=== PATIENT | female | born 1965 | race American Indian/Alaskan Native ===

== ENCOUNTER 2021-07-25 21:20 | Emergency (ER) | payer SELFPAY ==
[2021-07-25] MEDS ORDERED: ASPIRIN 325 MG TAB PO ONE (22:18)
[2021-07-25 22:54] LABS: Basophils % (Auto) 0.6 % (0.0-1.8); Eosinophils # (Auto) 0.1 K/mm3 (0.0-0.4); Hematocrit 37.3 % (30.3-42.9); Lymphocytes # (Auto) 2.7 K/mm3 (1.2-5.4); Lymphocytes % (Auto) 46.6 % (13.4-35.0); Mean Corpuscular HGB Conc 35 % (30-34); Mean Corpuscular Volume 80 fl (79-97); Monocytes # (Auto) 0.5 K/mm3 (0.0-0.8); Monocytes % (Auto) 8.8 % (0.0-7.3); Platelet Count 355 K/mm3 (140-440); Red Blood Count 4.66 M/mm3 (3.65-5.03); Red Cell Distribution Width 15.8 % (13.2-15.2)
[2021-07-25] MEDS ORDERED: NITROGLYCERIN 0.4 MG TAB SUBL SL ONE (22:56)
--- NOTE | 2021-07-25 23:02 | Emergency Department Report ---
ED General Adult HPI - General Chief complaint: Chest Pain Stated complaint: CHEST PAIN & HYPERTENSION Time Seen by Provider: 07/25/21 22:40 Source: patient Mode of arrival: Ambulatory Limitations: No Limitations - History of Present Illness Initial comments: Patient is 56 years old female with history of hypertension, noncompliant with her medication. Patient presented to the ER complaining of substernal chest pain with no radiation. Patient stated that pain started this morning. Patient described her chest pain as tightness. She denied any shortness of breath, cough, fever or chills. Patient found to have a blood pressure of 187/107. Severity scale (0 -10): 3 - Related Data Allergies Allergy/AdvReac Type Severity Reaction Status Date / Time hydrocodone [From Vicodin] Allergy Itching Verified 07/25/21 22:06 latex Allergy Itching Verified 07/25/21 22:06 Latex, Natural Rubber Allergy Itching Verified 07/25/21 22:06 Penicillins Allergy Itching Verified 07/25/21 22:06 ED Review of Systems ROS: Stated complaint: CHEST PAIN & HYPERTENSION Other details as noted in HPI Comment: All other systems reviewed and negative Constitutional: denies: chills, fever Respiratory: denies: cough, shortness of breath, SOB with exertion, SOB at rest Cardiovascular: chest pain. denies: palpitations, dyspnea on exertion Gastrointestinal: denies: abdominal pain, nausea, vomiting Musculoskeletal: denies: back pain Neurological: denies: headache, weakness, numbness, paresthesias, confusion, abnormal gait ED Past Medical Hx - Past Medical History Previous Medical History?: No - Surgical History Past Surgical History?: Yes Additional Surgical History: Hy ED Physical Exam - General Limitations: No Limitations General appearance: alert, in no apparent distress - Head Head exam: Present: atraumatic, normocephalic, normal inspection - Eye Eye exam: Present: normal appearance - ENT ENT exam: Present: normal exam, normal orophraynx, mucous membranes moist - Neck Neck exam: Present: normal inspection, full ROM. Absent: tenderness, meningismus - Respiratory Respiratory exam: Present: normal lung sounds bilaterally. Absent: respiratory distress, wheezes, rales, rhonchi, accessory muscle use, decreased breath sounds, prolonged expiratory - Cardiovascular Cardiovascular Exam: Present: regular rate, normal rhythm, normal heart sounds - GI/Abdominal GI/Abdominal exam: Present: soft, normal bowel sounds. Absent: distended, tenderness, guarding, rebound, rigid, organomegaly, mass, bruit, pulsatile mass, hernia - Extremities Exam Extremities exam: Present: normal inspection, full ROM, normal capillary refill. Absent: tenderness - Back Exam Back exam: Present: normal inspection, full ROM. Absent: CVA tenderness (R), CVA tenderness (L) - Neurological Exam Neurological exam: Present: alert, oriented X3, CN II-XII intact, normal gait - Psychiatric Psychiatric exam: Present: normal mood - Skin Skin exam: Present: warm, intact, normal color ED Course Vital Signs 07/25/21 07/25/21 07/26/21 22:07 23:13 01:00 Temperature 98.5 F Pulse Rate 67 76 68 Respiratory 17 Rate Blood Pressure 194/103 Blood Pressure 181/107 180/103 [Right] O2 Sat by Pulse 100 Oximetry 07/26/21 07/26/21 01:22 03:07 Temperature Pulse Rate 68 74 Respiratory Rate Blood Pressure 180/103 Blood Pressure 103/63 [Right] O2 Sat by Pulse Oximetry ED Medical Decision Making - Lab Data Result diagrams: 07/25/21 22:42 07/25/21 22:42 - EKG Data -: EKG Interpreted by Fl EKG shows normal: sinus rhythm Rate: normal - EKG Data Interpretation: no acute changes - Radiology Data Radiology results: report reviewed - Medical Decision Making Patient is 56 years old female with history of hypertension, noncompliant with her medication. Patient presented to the ER complaining of substernal chest pain with no radiation. Patient stated that pain started this morning. Patient described her chest pain as tightness. She denied any shortness of breath, cough, fever or chills. Patient found to have a blood pressure of 187/107. EKG is unremarkable. Labs reviewed and is negative including a negative trop onin x2. Chest x-ray is negative. Patient received nitroglycerin with minimal improvement in blood pressure however patient responded very well to clonidine 0.2 mg. Patient stated that her chest pain is completely resolved. I started patient on hydrochlorothiazide and advised to continue her atenolol. Patient strongly advised to follow-up with her primary care physician for outpatient cardiac work-up and to return to the ER if she develop any new symptoms. Critical care attestation.: If time is entered above; I have spent that time in minutes in the direct care of this critically ill patient, excluding procedure time. ED Disposition Clinical Impression: Chest pain, Malignant hypertension Disposition: 01 HOME / SELF CARE / HOMELESS Is pt being admited?: No Condition: Stable Instructions: Nonspecific Chest Pain, Adult, Hypertension (ED), Hypertension, Adult Referrals: LINDSAY TUCKER MD [Staff Physician] - 3-5 Days
[2021-07-25 23:13] LABS: Alanine Aminotransferase 18 units/L (7-56); Albumin 4.6 g/dL (3.9-5); Blood Urea Nitrogen 12 mg/dL (7-17); Calcium 9.6 mg/dL (8.4-10.2); Hemolysis Index 3
--- NOTE | 2021-07-25 23:15 | XRay Report ---
CHEST 2 VIEWS INDICATION / CLINICAL INFORMATION: Chest Tightness, SOB/DOMO. COMPARISON: None available. FINDINGS: SUPPORT DEVICES: None. HEART / MEDIASTINUM: No significant abnormality. LUNGS / PLEURA: No significant pulmonary or pleural abnormality. No pneumothorax. ADDITIONAL FINDINGS: No significant additional findings. IMPRESSION: 1. No active cardiopulmonary disease. Signer Name: Jermaine Rodgers II, MD Signed: 07/25/2021 11:11 PM Workstation Name: [id number]
[2021-07-25 23:18] LABS: BUN/Creatinine Ratio 17
[2021-07-26] MEDS ORDERED: cloNIDine 0.1 MG TAB PO ONE (01:03)
[2021-07-26 03:08] VITALS: BP 103/63
--- NOTE | 2021-07-26 09:24 | Electrocardiograph Report ---
[facility] Test Date: 2021-07-25 Test Time: 21:29:30 Pat Name: GAVIOTA MCGEE Department: Room: Gender: F Leasing Coordinator: [id number] : 1965 Requested By: RITIKA LNAGFORD Order Number: [id number] Reading MD: Robb Rowe Measurements Intervals [place] Rate: 69 P: 55 AK: 165 QRS: 56 QRSD: 86 T: 82 QT: 434 QTc: 467 Interpretive Statements Sinus rhythm Consider left ventricular hypertrophy No previous ECG available for comparison Electronically Signed On 07-26-2021 9:23:57 EST by Robb Rowe
== END 2021-07-26 08:30 | disposition home or self-care (01) ==
LOC: ED 21:20
DX: R07.9 Chest pain, unspecified (principal); I10 Essential (primary) hypertension; Z91.040 Latex allergy status; Z88.0 Allergy status to penicillin; Z88.5 Allergy status to narcotic agent
CPT/HCPCS: 36415; 71046; 80053; 83690; 84484; 85025; 93005; 99284